=== PATIENT | female | born 1935 | race Caucasian/White ===

== ENCOUNTER → 2016-10-26 | Outpatient (CLI) | payer OTHER ==
[~2016-10-26] MED LIST: GADOBUTROL 10 ML VIAL IVP ONE
--- NOTE | 2016-10-26 15:34 | MR ---
MRI of the Left Knee, Without and With Contrast October 26, 2016 History: Evaluate complex retropopliteal mass. Technique: Precontrast axial, sagittal, and coronal MR sequences of left knee are obtained. After int ravenous administration of 6 mL Gadavist, postcontrast-enhanced imaging is obtained in three planes. Findings: Surgical features of a left knee arthroplasty are identified with associated metallic susce ptibility artifact in all three compartments, somewhat limiting visualization. Posterior to the knee medially, there is evidence of a 6 cm long x 1.7 cm wide fluid collection track ing inferiorly from the knee joint along the medial head of the gastrocnemius, with typical features of a Cisneros cyst, including peripheral rim enhancement. No evidence of solid nodularity or masslike en hancement. Also present anteriorly is small focal prepatellar fluid collection measuring 2.5 cm in si ze located along the anterior medial margin of the distal patellar tendon. No significant knee joint effusion identified. No additional periarticular fluid collections are iden tified. Visualized aspects of the distal femur and proximal tibia appear normal. Impression: 1. Status post left total knee arthroplasty with associated metallic susceptibility artifact. 2. 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 3. Small prepatellar fluid collection along the anterior medial aspect of the distal patellar tendon. 4. No evidence of knee joint effusion. [Telephone] results called to Dr. Koffi Lopez at 3:25 p.m.
== END ==
LOC: FIMAGING 12:17
PROVIDERS: ATTEND Internal Medicine
DX: M71.22 Synovial cyst of popliteal space [Baker], left knee (principal); Z96.652 Presence of left artificial knee joint
CPT/HCPCS: 73723; A9585